=== PATIENT | male | born 1980 | race Caucasian/White ===

== ENCOUNTER 2017-11-10 06:14 | Emergency (ER) | payer OTHER ==
--- NOTE | 2017-11-10 06:34 | ED Physician Chart ---
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 fell on rt thumb with punture wound volar thumb and partial subungal partial hematoma Allergies:: Allergies Allergy/AdvReac Type Severity Reaction Status Date / Time No Known Allergies Allergy Verified 11/10/17 06:20 Vitals:: Vital Signs - 8 hr 11/10/17 06:15 Temp 98.1 F HR 60 RR 18 BP 114/80 O2 Sat % 99 <Hamida Medina - Last Filed: 11/10/17 06:50> - Patient Information Allergies:: Allergies Allergy/AdvReac Type Severity Reaction Status Date / Time No Known Allergies Allergy Verified 11/10/17 06:20 Vitals:: Vital Signs - 8 hr 11/10/17 11/10/17 06:15 08:22 Temp 98.1 F 97.6 F HR 60 49 RR 18 16 BP 114/80 111/60 O2 Sat % 99 100 <Nathan Lawrence - Last Filed: 11/10/17 10:10> ED Review of Systems - Review of Systems General/Constitutional: No fever, No chills, No weight loss, No weakness, No diaphoresis, No edema, No loss of appetite Skin: Other (laceration 2.5 cm volar thumb) Head: No headache, No light-headedness Eyes: No loss of vision, No pain, No diplopia ENT: No earache, No nasal drainage, No sore throat, No tinnitus Neck: No neck pain, No swelling, No thyromegaly, No stiffness, No mass noted Cardio Vascular: No chest pain, No palpitations, No PND, No orthopnea, No edema Pulmonary: No SOB, No cough, No sputum, No wheezing GI: No nausea, No vomiting, No diarrhea, No pain, No melena, No hematochezia, No constipation, No hematemesis G/U: No dysuria, No frequency, No hematuria Musculoskeletal: Bone or joint pain (sub ungal hematoma) Endocrine: No polyuria, No polydipsia Psychiatric: No prior psych history, No depression, No anxiety, No suicidal ideation Hematopoietic: No bruising, No lymphadenopathy Allergic/Immuno: No urticaria, No angioedema Neurological: No syncope, No focal symptoms, No weakness, No paresthesia, No headache, No seizure, No dizziness, No confusion, No vertigo <Hamida Medina - Last Filed: 11/10/17 06:50> ED Physical Exam - Physical Examination General/Constitutional: Awake, Well-developed, well-nourished, Alert, No distress, GCS 15, Non-toxic appearing, Ambulatory Head: Atraumatic Eyes: Lids, conjuctiva normal, PERRL, EOMI Skin: Well hydrated, No lymphadenopathy Other Skin comments:: puncture wound volar thumb 2.5cm and sbungal hematoma ENMT: External ears, nose nl, Nasal exam nl, Lips, teeth, gums nl Neck: Nontender, Full ROM w/o pain, No JVD, No nuchal rigidity, No bruit, No mass, No stridor Respiratory: Nl effort/Exclusion, Clear to Auscultation, No Wheeze/Rhonchi/Rales Cardio Vascular: RRR, No murmur, gallop, rubs, NL S1 S2 GI: No tenderness/rebounding/guarding, No organomegaly, No hernia, Normal BS's, Nondistended, No mass/bruits, No McBurney tenderness : No CVA tenderness Extremities: No tenderness or effusion, Full ROM, normal strength in all extremities, No edema, Normal digits & nails Neuro/Psych: Alert/oriented, DTR's symmetric, Normal sensory exam, Normal motor strength, Judgement/insight normal, Mood normal, Normal gait, No focal deficits Misc: Normal back, No paraspinal tenderness <Hamida Medina - Last Filed: 11/10/17 06:50> ED Labs/Radiology/EKG Results - Radiology Results Comments:: X-Rays: + Comminuted DP Fractures of the Right Thumb <Nathan Lawrence - Last Filed: 11/10/17 10:10> ED Assessment - Assessment General Assessment: rt thumb hematoma laceration and subungal hematoma s/p thumb puncture wound laceration repair - Procedures Procedures:: laceation repair rt thumb prep with betadyne after wound soak and digital thumb block then suture repair 4 stitches 5-o nylon Laceration Type:: Intermediate Wound Length: 2.5 cm Prep/Irrigation:: betadyne Local Anesthetic:: 10 cc 1percent lidocaine <CarolHamida - Last Filed: 11/10/17 06:50> - Procedures Informed Consent: Procedure/risk/benefits explained by MD: Yes (Right Thumb Spica Splint Applied) <Nathan Lawrence - Last Filed: 11/10/17 10:10> ED Septic Shock - . Is Septic Shock (SBP<90, OR Lactate>4 mmol\L) present?: No - <6hrs of presentation: Vital Signs: Vital Signs - 8 hr 11/10/17 06:15 Temp 98.1 F HR 60 RR 18 BP 114/80 O2 Sat % 99 <[email or web address] - Last Filed: 11/10/17 06:50> - <6hrs of presentation: Vital Signs: Vital Signs - 8 hr 11/10/17 11/10/17 06:15 08:22 Temp 98.1 F 97.6 F HR 60 49 RR 18 16 BP 114/80 111/60 O2 Sat % 99 100 <Nathan Lawrence - Last Filed: 11/10/17 10:10> ED Reassessment (Disposition) - Reassessment Reassessment Condition:: Improved - Diagnosis Diagnosis:: rt thumb puncture wounds/p laceration repair - Aftercare/Follow up Instructions Aftercare/Follow-Up Instructions:: Counseled pt regarding lab results/diagnosis & need follow up - Patient Disposition Discharge/Transfer:: Home <AntoniomariselaHamida - Last Filed: 11/10/17 06:50> - Reassessment Reassessment:: pt Rx with Rocephin 1.0gm IM; pt's last tetanus shot: < 3 years; UTD; pt is asymptomatic upon discharge - Diagnosis Diagnosis:: Right Thumb Fractures; Right Thumb Laceration/Wounds - Aftercare/Follow up Instructions Aftercare/Follow-Up Instructions:: Counseled pt regarding lab results/diagnosis & need follow up, Refer to Discharge Instructions, Counseled pt & family regarding lab results/diagnosis & need follow up Medication Prescribed:: Rx: Keflex 500mg po qid x 10 days; Neosporin Ointment bid and dressings x 14 days; Wound Care/Laceration Care; Fracture Care; X-Rays Instructions; Sutures out in 10 days to 14 days - Patient Disposition Discharge/Transfer:: Home Condition at Disposition:: Stable, Improved (RTER prn if existing s/s reoccur and/or get worse and/or any other new s/s occur; X-Rays Instructions; Sutures to be removed in 10 days to 14 days; ACIs given for all above Dx; Refer to Hand Surgeon/Specialist/Orthopedist ROXY; F/U with PMD in one day or prn; RTER prn if concerned) <Nathan Lawrence - Last Filed: 11/10/17 10:10> ED Discharge Plan <Hamida Medina - Last Filed: 11/10/17 06:50> <Nathan Lawrence - Last Filed: 11/10/17 10:10> - Patient Disposition Admit/Discharge/Transfer: PT DISCHARGED HOME Condition at Disposition: Improved Instructions: Cast or Splint Care, [id number], Thumb Fracture, Sutured Wound Care, Sutured Wound Care, [id number] Forms: Work Release Form
[2017-11-10] MEDS ORDERED: Triple Antibiotic 0.94 gm Pkt TP ONE (07:42)
[2017-11-10] MEDS ORDERED: Triple Antibiotic 0.94 gm Pkt TP STA (07:45)
--- NOTE | 2017-11-10 09:15 | Diagnostic Imaging Report ---
Right hand 3 views Indication: Puncture wound Comparison: none Findings: There is a comminuted fracture of the fifth distal phalanx. No radiopaque foreign bodies identified. A small soft tissue defect is seen along the volar aspect. There is prominence of the fourth tuft which may have been due to old trauma or other inflammatory processes. No evidence of dislocation. Mild degenerative changes are noted. Impression: Comminuted fracture of the fifth distal phalanx. This may extend to the proximal articular surface. Soft tissue defect is seen along the volar aspect. No radiopaque foreign body identified. Please correlate clinically.
== END 2017-11-10 08:35 | disposition home or self-care (01) ==
LOC: ER 06:14
DX: S62.521A Displaced fracture of distal phalanx of right thumb, initial encounter for closed fracture (principal); S61.131A Puncture wound without foreign body of right thumb with damage to nail, initial encounter; S61.011A Laceration without foreign body of right thumb without damage to nail, initial encounter; W20.8XXA Other cause of strike by thrown, projected or falling object, initial encounter; Y93.89 Activity, other specified; Y92.39 Other specified sports and athletic area as the place of occurrence of the external cause; Y99.8 Other external cause status
CPT/HCPCS: 99284; 12001; 73130; 96372; J0696; X7704; Z7502; Z7610